=== PATIENT | female | born 1955 ===

== ENCOUNTER 2018-08-22 18:02 | Emergency (ER) | payer BC ==
[2018-08-22 18:19] VITALS: TEMP 98.3; BMI 38.6
[2018-08-22] MEDS ORDERED: Sodium Chloride 0.9% 1,000 ML IV STA (19:08)
--- NOTE | 2018-08-22 19:08 | ED PDOC ---
Arrival/HPI - General Chief Complaint: Abdominal Pain Time Seen by Provider: 08/22/18 18:39 Historian: Patient - History of Present Illness Narrative History of Present Illness (Text): 08/22/18 19:04 62-year-old female with past medical history of diabetes and hypertension, complains of 2-day history of constant lower abdominal pain greatest in the right lower quadrant radiating to her lower back associated with multiple episo malena of vomiting. Patient reports having similar symptoms in the past was diagnosed with a UTI. States that her current symptoms today are actually the same. Otherwise: (-) urinary symptoms, (-) diarrhea, (-) fever, (-) melena, (-) hematochezia. Has history of prior abdominal surgery -status post cholecystectomy, appendectomy. Past Medical History - Infectious Disease Hx of Infectious Diseases: None - Cardiac Hx Cardiac Disorders: Yes Hx Hypertension: Yes - Pulmonary Hx Respiratory Disorders: No - Neurological Hx Neurological Disorder: No - HEENT Hx HEENT Disorder: No - Renal Hx Renal Disorder: No - Endocrine/Metabolic Hx Endocrine Disorders: Yes Hx Diabetes Mellitus Type 1: Yes - Hematological/Oncological Hx Blood Disorders: No - Integumentary Hx Dermatological Disorder: No - Musculoskeletal/Rheumatological Hx Musculoskeletal Disorders: No - Gastrointestinal Hx Gastrointestinal Disorders: No - Genitourinary/Gynecological Hx Genitourinary Disorders: No - Psychiatric Hx Psychophysiologic Disorder: No Hx Substance Use: No Family/Social History Family/Social History: No Known Family HX Smoking Status: Never Smoked Hx Alcohol Use: No Hx Substance Use: No Allergies/Home Meds Allergies/Adverse Reactions: Allergies No Known Allergies Allergy (Verified 08/22/18 18:44) Review of Systems - Review of Systems Constitutional: absent: Fatigue, Fevers Respiratory: absent: SOB, Cough Cardiovascular: absent: Chest Pain, Palpitations Gastrointestinal: Abdominal Pain, Nausea, Vomiting. absent: Diarrhea Genitourinary Female: absent: Dysuria, Frequency, Hematuria Musculoskeletal: Back Pain. absent: Arthralgias, Neck Pain Skin: absent: Rash, Pruritis, Skin Lesions Neurological: absent: Headache, Dizziness Physical Exam Vital Signs Temp Pulse Resp BP Pulse Ox 08/22/18 18:18 98.3 F 93 H 19 139/78 96 Temperature: Afebrile Blood Pressure: Normal Pulse: Regular Respiratory Rate: Normal Appearance: Positive for: Well-Appearing, Non-Toxic, Comfortable Pain Distress: Mild Mental Status: Positive for: Alert and Oriented X 3 - Systems Exam Head: Present: Atraumatic, Normocephalic Pupils: Present: PERRL Extroacular Muscles: Present: EOMI Conjunctiva: Present: Normal Mouth: Present: Dry Neck: Present: Normal Range of Motion Respiratory/Chest: Present: Clear to Auscultation, Good Air Exchange. No: Respiratory Distress, Accessory Muscle Use Cardiovascular: Present: Regular Rate and Rhythm, Normal S1, S2. No: Murmurs Abdomen: Present: Tenderness (+lower abdominal tenderness). No: Distention, Peritoneal Signs, Rebound, Guarding Back: Present: Normal Inspection. No: CVA Tenderness Upper Extremity: Present: Normal Inspection. No: Cyanosis, Edema Lower Extremity: Present: Normal Inspection. No: Edema Neurological: Present: GCS=15, CN II-XII Intact, Speech Normal Skin: Present: Warm, Dry, Normal Color. No: Rashes Psychiatric: Present: Alert, Oriented x 3, Normal Insight, Normal Concentration Medical Decision Making ED Course and Treatment: 08/22/18 19:07 Plan : - IV - Labs - UA, urine cx - Zofran / Toradol - Reassess / disposition 08/22/18 20:30 Labs reviewed : cbc & cmp wnl, UA +UTI On reevaluation, patient reports improvement of symptoms, denies any nausea, states that the pain is controlled. On exam, patient remains awake alert and oriented 3 in no acute distress. Abdomen still soft and mild suprapubic tenderness, repeat neuro exam shows no focal findings. CT A/P ordered. 08/22/18 23:18 CT Abdomen/Pelvis with IV contrast: FINDINGS: LUNG BASES: The visualized heart is moderately enlarged. The visualized lung bases are clear. LIVER: Unremarkable. GALLBLADDER AND BILE DUCTS: The gallbladder is surgically absent. There is intrahepatic and extrahepatic biliary ductal dilatation although this may be within normal limits for a post cholecystectomy patient. PANCREAS: Unremarkable. SPLEEN: Unremarkable. ADRENAL GLANDS: Unremarkable. KIDNEYS, URETERS, AND BLADDER: Both kidneys demonstrate a lobulated appearance which may be a congenital variant or can represent multiple prior episodes of infection or infarction. Please correlate clinically. Several right renal hypodense lesions, most of which appear to represent simple cysts. However, one of these located centrally within the right upper pole does not meet criteria for a simple cyst and is therefore incompletely evaluated. This measures 1.9 cm on series 2, image 33. Chest for further evaluation could include renal mass protocol CT, renal ultrasound, or followup examination in 6 to 12 months. There is a small left upper pole renal cyst. No hydronephrosis bilaterally. No hydroureter. Bladder is decompressed. STOMACH AND BOWEL: Small hiatal hernia. Stomach is decompressed. There is mild colonic diverticulosis without evidence for acute diverticulitis. No bowel obstruction. APPENDIX: No evidence of acute appendicitis on CT examination. PERITONEUM: No free fluid. No free air. LYMPH NODES: No lymphadenopathy is evident. REPRODUCTIVE: Uterus is atrophic or absent. VASCULATURE: Mild atherosclerosis of the abdominal aorta and branches. BONES: Mild to moderate multilevel degenerative spine changes. IMPRESSION: 1. The visualized heart is moderately enlarged. 2. The gallbladder is surgically absent. 3. There is intrahepatic and extrahepatic biliary ductal dilatation although this may be within normal limits for a post cholecystectomy patient. 4. Both kidneys demonstrate a lobulated appearance which may be a congenital pepe iant or can represent multiple prior episodes of infection or infarction. Please correlate clinically. 5. Several right renal hypodense lesions, most of which appear to represent simple cysts. However, one of these located centrally within the right upper pole does not meet criteria for a simple cyst and is therefore incompletely evaluated. This measures 1.9 cm on series 2, image 33. Options for further evaluation could include renal mass protocol CT, renal ultrasound, or followup examination in 6 to 12 months. 6. Small hiatal hernia. 7. There is mild colonic diverticulosis without evidence for acute diverticulitis. 8. Additional and incidental findings as described, please see comments. Electronically signed on Aug 22, 2018 10:36:17 PM EST by: Lukasz Ozuna M.D., PAMELA Certified By [facility] Fellowship Trained MRI and CT Specialist 08/22/18 23:27 CT results d/w the patient and family. On re-evaluation, patient is resting comfortably without nausea or pain. Advised to follow up CT results with her pmd without fail. Advised to follow up with primary care physician or referral provided in 1-2 days without fail. Advised to take medication as prescribed. Return to the emergency room at any time for any new or worsening symptoms. Patient states she fully agrees with and understands discharge instructions. States that she agrees with the plan and disposition. Verbalized and repeated discharge instructions and plan. I have given the patient opportunity to ask any additional questions. - RAD Interpretation Rn Interventional: Radiologist - PA / TALENT ACQUISITION MANAGER / Resident Statement /DO has reviewed & agrees with the documentation as recorded. Disposition/Present on Arrival - Present on Arrival Any Indicators Present on Arrival: No History of DVT/PE: No History of Uncontrolled Diabetes: No Urinary Catheter: No History of Decub. Ulcer: No History Surgical Site Infection Following: None - Disposition Have Diagnosis and Disposition been Completed?: Yes Diagnosis: Abdominal pain, UTI (urinary tract infection) Disposition: HOME/ ROUTINE Disposition Time: 23:15 Patient Plan: Discharge Condition: STABLE Discharge Instructions (ExitCare): Urinary Tract Infections in Adults, Acute Abdomen (Belly Pain) Print Language: UZBEK Additional Instructions: Thank you for letting us take care of you today. You were treated for abdominal pain, UTI. The emergency medical care you received today was directed at your acute symptoms. If you were prescribed any medication, please fill it and take as directed. It may take several days for your symptoms to resolve. Return to the Emergency Department if your symptoms worsen, do not improve, or if you have any other problems. Please contact your doctor or referral provided in 2 days for re-evaluation and follow up. Bring any paperwork you were given at discharge with you along with any medications you are taking to your follow up visit. Our treatment cannot replace ongoing medical care by a primary care provider (PCP) outside of the emergency department. Thank you for allowing the [facility] team to be part of your care today. If you had a CT scan: A Radiologist will review the ED reading if any change in treatment is needed we will contact you. If you had a urine culture: It will take several days for the results, if any change in treatment is needed we will contact you. CT A/P w/ IV contrast preliminary results : IMPRESSION: 1. The visualized heart is moderately enlarged. 2. The gallbladder is surgically absent. 3. There is intrahepatic and extrahepatic biliary ductal dilatation although this may be within normal limits for a post cholecystectomy patient. 4. Both kidneys demonstrate a lobulated appearance which may be a congenital variant or can represent multiple prior episodes of infection or infarction. Please correlate clinically. 5. Several right renal hypodense lesions, most of which appear to represent simple cysts. However, one of these located centrally within the right upper pole does not meet criteria for a simple cyst and is therefore incompletely evaluated. This measures 1.9 cm on series 2, image 33. Options for further evaluation could include renal mass protocol CT, renal ultrasound, or followup examination in 6 to 12 months. 6. Small hiatal hernia. 7. There is mild colonic diverticulosis without evidence for acute diverticulitis. 8. Additional and incidental findings as described, please see comments. Prescriptions: Cephalexin [Keflex] 500 mg PO Q6 #28 capsule Ondansetron ODT [Zofran ODT] 4 mg PO DAILY PRN #20 odt PRN Reason: Nausea/Vomiting Referrals: Brittaney Swain MD [Staff Provider] - Follow up with primary Forms: [employer] (Danish)
[2018-08-22 19:49] LABS: BASO # 0.02 K/mm3 (0.0-2.0); BASO % 0.3 % (0.0-3.0); EOS # 0.1 (0.0-0.7); EOS % 1.4 % (1.5-5.0); LYMPH # 1.6 (1.2-3.4); LYMPH % 25.2 % (22.0-35.0); MEAN CORPUSCULAR HEMOGLOBIN 26.6 pg (25.0-35.0); MEAN CORPUSCULAR HGB CONC 32.8 g/dl (31.0-37.0); MEAN PLATELET VOLUME 10.7 fl (7.0-11.0); MONO # 0.7 (0.1-0.6); MONO % 10.8 % (1.0-6.0); RBC 4.89 10^6/uL (3.5-6.1); RED CELL DISTRIBUTION WIDTH 14.8 % (11.5-14.5); WHITE BLOOD COUNT 6.5 10^3/uL (4.5-11.0)
[2018-08-22 19:52] LABS: URINE BILIRUBIN NEGATIVE (NEGATIVE); URINE BLOOD TRACE-INTACT (NEGATIVE); URINE GLUCOSE (UA) NEGATIVE (NEGATIVE); URINE LEUKOCYTE ESTERASE MODERATE Leu/uL (NEGATIVE); URINE PROTEIN 30 mg/dL (<30 mg/dL); URINE UROBILINOGEN 0.2 E.U./dL (<1 E.U./dL)
[2018-08-22 19:54] LABS: URINE APPEARANCE CLEAR (CLEAR); URINE COLOR YELLOW (YELLOW)
[2018-08-22 19:56] LABS: INR 1.04; PARTIAL THROMBOPLASTIN TIME 28.2 Seconds (26.9-38.3); PROTHROMBIN TIME 11.5 SECONDS (9.4-12.5)
[2018-08-22 20:00] LABS: ALB/GLOB RATIO 1.1 (1.1-1.8); ALBUMIN 3.5 g/dL (3.0-4.8); CALCIUM 8.8 mg/dL (8.4-10.5)
[2018-08-22 20:00] LABS: URINE RBC 0 - 2 /hpf (0-2)
[2018-08-22 20:01] LABS: URINE BACTERIA FEW /hpf
[2018-08-22] MEDS ORDERED: Potassium Chloride 20 mEq/15 ml LIQ UD PO STA (23:19)
[2018-08-23 00:48] VITALS: BP 138/69; PULSE 61; RESP 18; O2SAT 98
--- NOTE | 2018-08-23 09:18 | CT ---
Date of service: 08/22/2018 PROCEDURE: CT Abdomen and Pelvis with contrast HISTORY: lower abd pain COMPARISON: None. TECHNIQUE: Contrast dose: Radiation dose: Total exam DLP = 1119.47 mGy-cm. This CT exam was performed using one or more of the following dose reduction techniques: Automated exposure control, adjustment of the mA and/or kV according to patient size, and/or use of iterative reconstruction technique. FINDINGS: LOWER THORAX: Cardiomegaly. Small hiatal hernia. LIVER: Unremarkable. No gross lesion . GALLBLADDER AND BILE DUCTS: Intra and extrahepatic biliary dilatation compatible with post cholecystectomy state. PANCREAS: Unremarkable. No gross lesion or ductal dilatation. SPLEEN: Unremarkable. ADRENALS: Unremarkable. No mass. KIDNEYS AND URETERS: Bilateral renal cysts.. No hydronephrosis. No solid mass. VASCULATURE: Unremarkable. No aortic aneurysm. No aortic atherosclerotic calcification or mural plaque present. BOWEL: Unremarkable. No obstruction. No gross mural thickening. APPENDIX: Normal appendix. PERITONEUM: Unremarkable. No free fluid. No free air. LYMPH NODES: Unremarkable. No enlarged lymph nodes. BLADDER: Unremarkable. REPRODUCTIVE: Hysterectomy. BONES: No acute fracture. OTHER FINDINGS: Infraumbilical hernia containing omental fat. Left lower anterior abdominal wall hernia containing omental fat. IMPRESSION: No acute pathology. Chronic findings as discussed above.
--- NOTE | 2018-08-23 09:19 | CARD ---
APPROVED REPORT Date of service: 08/22/2018 EKG Measurement Heart [id number] <Conclusion> Sinus rhythm with short NE with occasional premature ventricular complexes Minimal voltage criteria for LVH, may be normal variant Nonspecific T wave abnormality Abnormal ECG
== END 2018-08-23 00:47 | disposition home or self-care (01) ==
LOC: ED 18:02
DX: N39.0 Urinary tract infection, site not specified (principal); R10.9 Unspecified abdominal pain; I10 Essential (primary) hypertension
CPT/HCPCS: 74177; 80053; 81001; 83690; 83735; 85025; 85610; 85730; 87086; 87181; 93005; 96361; 96374; 96375; 99283; J1885; J2405; J7030; Q9967